=== PATIENT | male | born 1955 | race Asian ===

== ENCOUNTER 2019-12-28 19:58 | Emergency (ER) | payer OTHER ==
[~2019-12-28] VITALS: Ht 177.8 cm; Wt 83.0 kg
[~2019-12-28 19:58] MED LIST: AMOX875T8 PO; ASPIRIN 81 LOW81 MG PO; B-121000 MC5 PO; CHOL100034 PO; DORZOLAMIDE2 % OPTH; FLUO10CA2 PO; FLUTICASON50 MCG/AC1 NAS; FOLI1TAB26 PO; IPRATROPIUM/ INH; MAGNSUS68 PO; METO-837 PO; MOBIC15 MG PO; NEURONTIN800 MG PO; OLAN2.5T2 PO; PRAVACHOL80 MG PO; TIMOLOL MAL0.25 % OTIC; TRAM50TA PO; TYLENOL325 MG PO
[2019-12-28 20:52] LABS: PLATELET COUNT 300 K/uL (142-355)
[2019-12-28 22:29] VITALS: BP 136/94; TEMP 97.3
[2019-12-29] MEDS ORDERED: HALO5INJ3 IM (02:19)
[2019-12-29] MEDS ORDERED: TRAMADOL HYDROC50 MG PO (02:20)
[2019-12-29] MEDS ORDERED: ALLO100T22 PO (02:20)
[2019-12-29] MEDS ORDERED: ELIQUIS5 MG PO (02:22)
[2019-12-29] MEDS ORDERED: GABA400C2 PO (02:24)
[2019-12-29] MEDS ORDERED: OLANZAPINE7.5 MG PO (02:26)
== END 2019-12-28 22:29 | disposition other institution (70) ==
LOC: ED 19:58
PROVIDERS: Emergency Medicine
DX: R45.1 Restlessness and agitation (principal); F01.51 Vascular dementia, unspecified severity, with behavioral disturbance; R00.1 Bradycardia, unspecified; I44.4 Left anterior fascicular block; Z04.6 Encounter for general psychiatric examination, requested by authority
CPT/HCPCS: 36415; 80053; 85027; 93005; 99283